=== PATIENT | female | born 1955 | race Caucasian/White ===

== ENCOUNTER 2018-10-02 14:03 | Outpatient (REF) | payer BC, SELFPAY ==
[2018-10-02 21:46] LABS: Abs Immature Grans 0.01 k/cumm (0.0-0.09); Absolute Basophil Count 0.02 k/cumm (0.0-0.2); Absolute Eosinophil Count 0.05 k/cumm (0.0-0.7); Absolute Lymphocyte Count 1.52 k/cumm (1.2-3.4); Absolute Monocyte Count 0.25 k/cumm (0.11-0.7); Absolute Neutrophil Count 2.77 k/cumm (1.2-6.7); Basophils % 0.4; Eosinophils % 1.1; HCT 41.4 % (36.0-46.0); HGB 13.5 g/dL (12.0-15.5); Immature Grans % 0.2; Lymphocytes % 32.9; Mean Corp. HGB Concentration 32.6 g/dL (32.0-36.0); Mean Corpuscular Hemoglobin 31.4 pg (27.0-33.0); Mean Corpuscular Volume 96.3 fL (80-95); Monocytes % 5.4; Platelet Count 185 x1000/uL (130-400); RBC Distribution Width 12.9 % (11.7-14.6); White Blood Cell Count 4.62 k/cumm (4.4-10.8)
[2018-10-02 22:08] LABS: ALT 26 U/L (12-78); AST 21 U/L (15-37); Albumin 3.6 g/dL (3.4-5.0); Alkaline Phosphatase 71 U/L (46-116); Anion Gap 7.3 mmol/L (3-11); BUN 18 mg/dL (7-18); Bilirubin, Total 0.2 mg/dL (0.2-1.0); CO2 29.7 mmol/L (21.0-32.0); CREATININE 0.86 mg/dL (0.55-1.02); Calcium 8.6 mg/dL (8.5-10.1); Chloride 107 mmol/L (98-107); Glucose 81 mg/dL (70-100); Potassium 3.6 mmol/L (3.5-5.1); Sodium 144 mmol/L (136-145); Total Protein 6.5 g/dL (6.4-8.2)
[2018-10-02 23:03] LABS: C & S Indicated? Yes; RBC >50 (0-2)
== END 2018-10-02 14:23 ==
LOC: NCHCN 14:03
PROVIDERS: Visit Provider Nurse Practitioner Family
DX: Z79.899 Other long term (current) drug therapy (principal); R31.9 Hematuria, unspecified
CPT/HCPCS: 80053; 81015; 85025; 87086

== ENCOUNTER 2019-09-12 08:57 | Outpatient (REF) | payer BC, SELFPAY ==
[2019-09-12 22:23] LABS: Calculated LDL 109 mg/dL (<100); Cholesterol 194 mg/dL (<200); HDL Cholesterol 73 mg/dL (40-60); Triglyceride 63 mg/dL (<150)
== END 2019-09-12 09:17 ==
LOC: NCHCN 08:57
PROVIDERS: Visit Provider Internal Medicine
DX: G90.8 Other disorders of autonomic nervous system (principal); G43.909 Migraine, unspecified, not intractable, without status migrainosus; G89.29 Other chronic pain; Z13.220 Encounter for screening for lipoid disorders
CPT/HCPCS: 80061

== ENCOUNTER 2021-11-20 13:13 | Outpatient (REF) | payer BC, SELFPAY ==
--- NOTE | 2021-11-20 12:15 | PAPFT_PTH ---
PATIENT: Jayleen Maier LOC: [facility] U#:[id number] AGE/SX: 66/F ROOM: RE11/20/[address]: Lydia Archibald : 1955 BED: DIS: 11/20/2021 SPEC #: [id number] RECD: 11/23/21 12:52 STATUS: ELIZABETH REFatemeh #: [id number] DALTON: 11/20/21 12:[address]: Lydia Archibald DEPT: [facility] Cytology RECD BY: Randi Guy ENTERED: 11/23/21 12:52 SP TYPE: PAPFT ROGE DR: Prabhakar Carlisle Tissues: 1 - CX/ENDOCX FOR PAP SMEARS Procedures: PAP THIN PREP/[facility] Screening HPV DNA PROBE Comments: [id number]
== END 2021-11-20 13:14 | disposition home or self-care (01) ==
LOC: NCHCN 13:13
PROVIDERS: Visit Provider Internal Medicine
DX: Z00.00 Encounter for general adult medical examination without abnormal findings (principal); Z12.4 Encounter for screening for malignant neoplasm of cervix; Z11.51 Encounter for screening for human papillomavirus (HPV)
CPT/HCPCS: 88142; 87624

== ENCOUNTER 2021-11-30 21:40 | Outpatient (REF) | payer BC, SELFPAY ==
--- OUTSIDE RECORDS SUMMARY | 2021-11-30 21:45 | XMS_ITS | CCD ---
:1955 Author Care Team Providers Name Role Phone TATEL Attending Physician Unavailable Vital Signs Unknown or Not Available. Allergies Allergy Code Allergy Type Reaction Status No Known Allergies 0 No known allergies Act sindy Procedures Unknown or Not Available. History of Immunizations Unknown or Not Available. Problems Unknown or Not Available. Results Unknown or Not Available. Active Medications Unknown or Not Available. Medications Administered During Visit Unknown or Not Available. Encounters Encounter Diagnosis Diagnosis Code Start Date Pain in left foot [id number] 01/16/2021 Social History Smoking Status Code Start Date End Date Never smoker [id number] Patient Decision Aids Unknown or Not Available. Discharge Instructions You were admitted to [facility] on 01/16/2021 13:19 with a principal diagnosis of Pain in left foot You were discharged from [facility] on 01/16/2021 13:19 Should you have any questions prior to d ischarge, please contact a member of your healthcare team. If you have left the spital and have any questions, please contact your primary care physician. Chief Complaint and Reason For Visit Unknown or Not Available. Function Status Unknown or Not Available. Plan of Care Unknown or Not Available. Referral/Transition of Care Unknown or Not Available.
== END 2021-11-30 21:41 | disposition home or self-care (01) ==
LOC: NCHCN 21:40
PROVIDERS: Visit Provider Internal Medicine
DX: R31.9 Hematuria, unspecified (principal)
CPT/HCPCS: 87086

== ENCOUNTER 2023-12-02 08:57 | Outpatient (REF) | payer MEDICARE, SELFPAY ==
[2023-12-02 15:39] LABS: Anion Gap 6.8 mmol/L (3-11); CO2 29.2 mmol/L (21.0-32.0); CREATININE 0.8 mg/dL (0.55-1.02); Calcium 9.6 mg/dL (8.5-10.1); Calculated LDL 85 mg/dL (<100); Chloride 110 mmol/L (98-107); Cholesterol 191 mg/dL (<200); Estimated GFR 81.21 (mL/min/1.73m2); Glucose 85 mg/dL (74-106); HDL Cholesterol 93 mg/dL (40-60); Potassium 3.6 mmol/L (3.5-5.1); Sodium 146 mmol/L (136-145); Triglyceride 65 mg/dL (<150)
[2023-12-02 15:49] LABS: BUN 16 mg/dL (7-18)
== END 2023-12-02 08:58 | disposition home or self-care (01) ==
LOC: NCHCN 08:57
PROVIDERS: PCP Internal Medicine; Visit Provider Internal Medicine
DX: Z13.220 Encounter for screening for lipoid disorders (principal); Z00.00 Encounter for general adult medical examination without abnormal findings
CPT/HCPCS: 80048; 80061

== ENCOUNTER 2023-12-23 14:26 | Outpatient (REF) | payer MEDICARE, SELFPAY ==
[2023-12-23 21:02] LABS: Bacteria Few HPF (Negative); C & S Indicated? C&S Done As Ordered; Casts Negative LPF (Negative); Crystals Negative HPF (Negative); Epithelial Cells Few HPF (Negative); Mucus Negative (Negative)
== END 2023-12-23 14:27 | disposition home or self-care (01) ==
LOC: NCHCN 14:26
PROVIDERS: PCP Internal Medicine; Visit Provider Internal Medicine
DX: R31.9 Hematuria, unspecified (principal); B96.89 Other specified bacterial agents as the cause of diseases classified elsewhere
CPT/HCPCS: 81015; 87086

== ENCOUNTER 2024-07-13 13:52 | Outpatient (REF) | payer MEDICARE, SELFPAY ==
[2024-07-13 15:09] LABS: Bilirubin Negative (Negative); Blood Negative (Negative); Clarity Clear (Clear); Glucose Negative (Negative); Ketones Negative (Negative); Leukocyte Esterase Negative (Negative); Nitrite Negative (Negative); Specific Gravity 1.015 (1.005-1.025); Urobilinogen 0.2 mg/dL (Up to 0.2)
== END 2024-07-13 13:53 | disposition home or self-care (01) ==
LOC: NCHCN 13:52
PROVIDERS: PCP Internal Medicine; Visit Provider Internal Medicine
DX: R31.9 Hematuria, unspecified (principal); R82.89 Other abnormal findings on cytological and histological examination of urine
CPT/HCPCS: 81003

== ENCOUNTER 2025-03-15 15:25 | Outpatient (REF) | payer MEDICARE, SELFPAY ==
[2025-03-15 14:35] LABS: HCT 40.8 % (36.0-46.0); HGB 13.0 g/dL (11.2-15.7); MCH 31.8 pg (27.0-33.0); MCHC 31.9 % (32.0-36.0); MCV 100 fL (80-95); MPV 12.3 fL (8.0-11.0); Platelet Count 142 10^3/uL (130-400); RBC 4.09 10^6/uL (3.93-5.22); RDW 12.1 % (11.7-14.6); RDW-SD 44.7 fL; WBC 3.87 10^3/uL (4.4-10.8)
[2025-03-15 15:14] LABS: Anion Gap 8.1 mmol/L (3-11); BUN 15 mg/dL (7-18); CO2 27.9 mmol/L (21.0-32.0); Calcium 9.4 mg/dL (8.5-10.1); Chloride 107 mmol/L (98-107); Estimated GFR 94.73 (mL/min/1.73m2); Glucose 90 mg/dL (74-106); Potassium 3.4 mmol/L (3.5-5.1); Sodium 143 mmol/L (136-145); Vitamin D 25 Total 91 ng/mL (30-100)
== END 2025-03-15 15:26 | disposition home or self-care (01) ==
LOC: NCHCN 15:25
PROVIDERS: PCP Internal Medicine; Visit Provider Internal Medicine
DX: M85.80 Other specified disorders of bone density and structure, unspecified site (principal); D72.819 Decreased white blood cell count, unspecified
CPT/HCPCS: 80048; 82306; 85027

== ENCOUNTER 2025-04-05 15:35 | Outpatient (REF) | payer MEDICARE, SELFPAY ==
[2025-04-05 15:15] LABS: Potassium 4.0 mmol/L (3.5-5.1); Vitamin B12 214 pg/mL (193-986)
[2025-04-05 15:21] LABS: Folate > 20.0 ng/mL (8.6-20.0)
== END 2025-04-05 15:36 | disposition home or self-care (01) ==
LOC: NCHCN 15:35
PROVIDERS: PCP Internal Medicine; Visit Provider Internal Medicine
DX: E87.6 Hypokalemia (principal); D72.819 Decreased white blood cell count, unspecified
CPT/HCPCS: 82607; 82746; 84132